=== PATIENT | female | born 1990 | race Caucasian/White ===

== ENCOUNTER 2017-09-02 14:45 | Observation (INO) | payer MEDICAID, OTHER ==
[~2017-09-02] VITALS: Ht 157.5 cm; Wt 107.5 kg
[2017-09-02 14:55] VITALS: BP 118/75
[2017-09-02] MEDS ORDERED: NS IV 500 ML 500 ML IV SCH (15:00)
[2017-09-02 15:13] LABS: BASOPHILS % (AUTO) 0 % (0-10); EOSINOPHILS # (AUTO) 0.1 10^3/uL (0.0-0.3); EOSINOPHILS % (AUTO) 1 % (0-10); HEMATOCRIT 31 % (35-52); HEMOGLOBIN 10.7 G/DL (11.5-16.0); LYMPHOCYTES # (AUTO) 1.7 X 10^3 (1.0-4.0); LYMPHOCYTES % (AUTO) 22 % (12-44); MEAN CORPUSCULAR HEMOGLOBIN 28 PG (25-34); MEAN CORPUSCULAR HGB CONC 35 G/DL (32-36); MEAN CORPUSCULAR VOLUME 81 FL (80-99); MEAN PLATELET VOLUME 10.4 FL (7.4-10.4); MONOCYTES # (AUTO) 0.6 X 10^3 (0.0-1.0); MONOCYTES % (AUTO) 8 % (0-12); NEUTROPHILS # (AUTO) 5.3 X 10^3 (1.8-7.8); NEUTROPHILS % (AUTO) 69 % (42-75); PLATELET COUNT 258 10^3/uL (130-400); RED BLOOD COUNT 3.84 10^6/uL (4.35-5.85); RED CELL DISTRIBUTION WIDTH 13.8 % (10.0-14.5); WHITE BLOOD COUNT 7.7 10^3/uL (4.3-11.0)
[2017-09-02 15:15] VITALS: BP 114/53
[2017-09-02] MEDS ORDERED: INFLUENZA TRIvalent 2017-2018 0.5 ML/45 MCG SYR IM ONE (15:30)
[2017-09-02] MEDS ORDERED: CATHETER FLUSH 10 ML SYR IV PRN (15:30)
[2017-09-02 15:34] LABS: ALANINE AMINOTRANSFERASE 8 U/L (0-55); ALBUMIN 2.9 GM/DL (3.2-4.5); ALKALINE PHOSPHATASE 105 U/L (40-136); BILIRUBIN,TOTAL 0.4 MG/DL (0.1-1.0); BUN/CREATININE RATIO 6; CALCIUM 8.4 MG/DL (8.5-10.1); CARBON DIOXIDE 20 MMOL/L (21-32); CHLORIDE 109 MMOL/L (98-107); CREATININE SERUM 0.54 MG/DL (0.60-1.30); GFR ESTIMATED > 60; GLUCOSE 68 MG/DL (70-105); POTASSIUM 3.1 MMOL/L (3.6-5.0); SODIUM 138 MMOL/L (135-145); TOTAL PROTEIN 6.2 GM/DL (6.4-8.2); URIC ACID 4.1 MG/DL (2.6-7.2)
[2017-09-02] MEDS: D5 LR IV SOLUTION 1,000 ML IV SCH (15:37)
[2017-09-02] MEDS ORDERED: morphine INJ 10 MG/ML 1ML (SYR OR VIAL) IJ ONE (20:45)
[2017-09-02 21:00] VITALS: BP 119/63
[2017-09-03] VITALS: BP 121/76
[2017-09-03] MEDS: D5 LR IV SOLUTION 1,000 ML IV SCH (01:58)
[2017-09-03 05:23] VITALS: BP 111/69
[2017-09-03 07:50] VITALS: BP 119/69
--- NOTE | 2017-09-03 11:30 | History & Physical-OB ---
OB - Chief Complaint & HPI Date/Time Date of Admission: Date of Admission: 09/02/2017 Time Seen by Provider: 08:00 Chief Complaint/History OB-Reason for Admission/Chief: Uterine contractions Hx : 3 Hx Para: 2 Expected Date of Delivery: Sep 26, 2017 Gestational Age in Weeks: 36 Gestational Age in Days: 4 Indication for : desires repeat Other reason for admission: Patient was admitted from clinic yesterday after reporting contractions q 4 min , and extreme pain Admission Nurse Assessment Rev: Yes History of Labs O neg Antibody neg RI RPR NR HBsAg NR Hep Ab NR GC neg GBS unknown Allergies and Home Medications Allergies Coded Allergies: No Known Drug Allergies (Unverified , 09/02/17) Home Medications No Active Prescriptions or Reported Meds Patient Home Medication List Home Medication List Reviewed: Yes OB - History Hx of Present Care: Yes Ultrasounds: Normal mid trimester US Obstetrical Complications: None (late transfer of care, took over from [place] at 30 weeks with [facility], then transfer to [place] at 35 weeks.) Medical Complications: None Obstetrical History Hx : 3 Hx Para: 2 Patient Past Medical History n/a Social History/Family History Recent Infectious Disease Expo: No OB - Admission Exam Physical Exam Vitals: Vital Signs 09/03/17 07:50 Temp 97.8 Pulse 87 Resp 20 B/P (MAP) 119/69 (86) O2 Delivery Room Air HEENT: NCAT Heart: Rhythm Normal Lungs: Clear Abdomen: Non tender (I am able to press very hard over previous incision and the patient makes no response to this, watching TV, and answer questions without acting in pain.) Extremities: Normal Reflexes: Normal Cervical Dilatation: None Effacement: 50% Station: -2 Membranes: Intact Heart Rate: 130's Accelerations: Accelerations Present Decelerations: No Decelerations Short Term Variability: Present Metal Punch Press Operator Variability: Average (6-25) Contractions on Admission: 6-10 Minutes Apart (some appear to have abrupt rise and fall as if made with abdominal muscle contraction by patient) Intensity: Mild Labs Laboratory Tests Test 09/02/17 14:52 09/02/17 15:45 Range/Units White Blood Count 7.7 4.3-11.0 10^3/uL Red Blood Count 3.84 L 4.35-5.85 10^6/uL Hemoglobin 10.7 L 11.5-16.0 G/DL Hematocrit 31 L 35-52 % Mean Corpuscular Volume 81 80-99 FL Mean Corpuscular Hemoglobin 28 25-34 PG Mean Corpuscular Hemoglobin Concent 35 32-36 G/DL Red Cell Distribution Width 13.8 10.0-14.5 % Platelet Count 258 130-400 10^3/uL Mean Platelet Volume 10.4 7.4-10.4 FL Neutrophils (%) (Auto) 69 42-75 % Lymphocytes (%) (Auto) 22 12-44 % Monocytes (%) (Auto) 8 0-12 % Eosinophils (%) (Auto) 1 0-10 % Basophils (%) (Auto) 0 0-10 % Neutrophils # (Auto) 5.3 1.8-7.8 X 10^3 Lymphocytes # (Auto) 1.7 1.0-4.0 X 10^3 Monocytes # (Auto) 0.6 0.0-1.0 X 10^3 Eosinophils # (Auto) 0.1 0.0-0.3 10^3/uL Basophils # (Auto) 0.0 0.0-0.1 10^3/uL Sodium Level 138 135-145 MMOL/L Potassium Level 3.1 L 3.6-5.0 MMOL/L Chloride Level 109 H 98-107 MMOL/L Carbon Dioxide Level 20 L 21-32 MMOL/L Anion Gap 9 5-14 MMOL/L Blood Urea Nitrogen 3 L 7-18 MG/DL Creatinine 0.54 L 0.60-1.30 MG/DL Estimat Glomerular Filtration Rate > 60 BUN/Creatinine Ratio 6 Glucose Level 68 L 70-105 MG/DL Uric Acid 4.1 2.6-7.2 MG/DL Calcium Level 8.4 L 8.5-10.1 MG/DL Total Bilirubin 0.4 0.1-1.0 MG/DL Aspartate Amino Transf (AST/SGOT) 11 5-34 U/L Alanine Aminotransferase (ALT/SGPT) 8 0-55 U/L Alkaline Phosphatase 105 40-136 U/L Total Protein 6.2 L 6.4-8.2 GM/DL Albumin 2.9 L 3.2-4.5 GM/DL Urine Protein 15 H 6-12 MG/DL Urine Creatinine 95 30-125 MG/DL Urine Protein/Creatinine Ratio 0.16 OB - Assessment/Plan/Diagnosis Assessment Admission Dx 36 week IUP Previous c/s x 2 uterine contractions Late transfer of care Admission Status: Observation Plan Other Plan IVF hydration given overnight, and monitoring without signs of any distress, and with RN noting the patient is able to sleep through a good portion of the night. Plan to dc today with PTL precautions plan for RLTCS at 39 weeks Discharge Diagnosis Diagnosis: 36 week IUP Previous c/s x 2 uterine contractions Late transfer of care TINY OJEDA DO Sep 03, 2017 11:30 am
== END 2017-09-03 10:30 | disposition home or self-care (01) ==
LOC: LDRP 14:45 → WSo 14:49 → LDRP 14:49 → WSo 09-03 11:40 → EDSTATUS 09-09 10:08
PROVIDERS: ADMIT Obstetrics & Gynecology; ATTEND Obstetrics & Gynecology
DX: O60.03 Preterm labor without delivery, third trimester (principal); O34.219 Maternal care for unspecified type scar from previous cesarean delivery; Z3A.36 36 weeks gestation of pregnancy
CPT/HCPCS: 36415; 80053; 82570; 84156; 84550; 85025; 96360; 96361; 96372; 99211; G0378

== ENCOUNTER 2017-09-04 05:39 | Outpatient (CLI) | payer SELFPAY ==
[~2017-09-04] VITALS: Ht 157.5 cm; Wt 107.5 kg
== END 2017-09-04 12:40 ==
LOC: PREOP 05:39
PROVIDERS: ATTEND Obstetrics & Gynecology
DX: Z01.818 Encounter for other preprocedural examination (principal); O34.211 Maternal care for low transverse scar from previous cesarean delivery

== ENCOUNTER 2017-09-11 07:30 | Inpatient (IN) | payer MEDICAID ==
[~2017-09-11] VITALS: Ht 157.5 cm; Wt 104.8 kg
[2017-09-19] MEDS ORDERED: LACTATED RINGERS 1,000 ML IV ONE (02:06)
[2017-09-19] MEDS: LACTATED RINGERS 1,000 ML IV PRN ×2 (07:41→09:55)
[2017-09-19 07:45] VITALS: BP 122/85
[2017-09-19 08:15] VITALS: BP 134/79
[2017-09-19] MEDS ORDERED: FAMOTIDINE 20MG/2ML IV (PEPCID) IV ONE (08:15)
[2017-09-19] MEDS ORDERED: METOCLOPRAMIDE INJ 10 MG/2 ML (REGLAN) IV ONE (08:15)
[2017-09-19] MEDS ORDERED: CATHETER FLUSH 10 ML SYR IV PRN (08:15)
[2017-09-19] MEDS ORDERED: CITRIC ACID/SOB CIT (BICITRA) 30 ML UDC PO ONE (08:15)
[2017-09-19] MEDS ORDERED: ceFAZolin 2 GM IV Premixed 50 ML IV ONE (08:15)
[2017-09-19 08:17] LABS: BASOPHILS % (AUTO) 0 % (0-10); EOSINOPHILS # (AUTO) 0.1 10^3/uL (0.0-0.3); EOSINOPHILS % (AUTO) 1 % (0-10); HEMATOCRIT 32 % (35-52); HEMOGLOBIN 10.7 G/DL (11.5-16.0); LYMPHOCYTES # (AUTO) 2.6 X 10^3 (1.0-4.0); LYMPHOCYTES % (AUTO) 25 % (12-44); MEAN CORPUSCULAR HEMOGLOBIN 26 PG (25-34); MEAN CORPUSCULAR HGB CONC 33 G/DL (32-36); MEAN CORPUSCULAR VOLUME 79 FL (80-99); MEAN PLATELET VOLUME 10.5 FL (7.4-10.4); MONOCYTES # (AUTO) 0.8 X 10^3 (0.0-1.0); MONOCYTES % (AUTO) 8 % (0-12); NEUTROPHILS # (AUTO) 6.9 X 10^3 (1.8-7.8); NEUTROPHILS % (AUTO) 67 % (42-75); PLATELET COUNT 334 10^3/uL (130-400); RED BLOOD COUNT 4.06 10^6/uL (4.35-5.85); RED CELL DISTRIBUTION WIDTH 14.1 % (10.0-14.5); WHITE BLOOD COUNT 10.3 10^3/uL (4.3-11.0)
[2017-09-19 08:37] LABS: BILIRUBIN,URINE NEGATIVE (NEGATIVE); CLARITY,URINE CLEAR; COLOR,URINE YELLOW; GLUCOSE, URINE (UA) NEGATIVE (NEGATIVE); KETONES,URINE 3+ (NEGATIVE); LEUKOCYTE ESTERASE ,URINE 1+ (NEGATIVE); NITRITE,URINE NEGATIVE (NEGATIVE); PH,URINE 7 (5-9); PROTEIN,URINE 2+ (NEGATIVE); UROBILINOGEN,URINE 4 MG/DL (NORMAL)
[2017-09-19] MEDS ORDERED: ceFAZolin 2 GM IV Premixed 50 ML IV NR (08:45)
--- NOTE | 2017-09-19 08:48 | Progress Note-Pre Operative ---
Pre-Operative Progress Note H&P Reviewed The H&P was reviewed, patient examined and no changes noted. Date Seen by Provider: Sep 19, 2017 Time Seen by Provider: 08:45 Date H&P Reviewed: Sep 19, 2017 Time H&P Reviewed: 08:45 Pre-Operative Diagnosis: Previous , 39 weeks RUSTYTINY Foster Sep 19, 2017 8:48 am
[2017-09-19] MEDS ORDERED: TETANUS,DIPTH,PERTUSS P/F (BOOSTRIX) 0.5 ML VIAL IM SCH (09:00)
[2017-09-19] MEDS ORDERED: MEASLES,MUMPS,RUBELLA 1 EA INJ SC SCH (09:00)
[2017-09-19] MEDS ORDERED: LACTATED RINGERS 1,000 ML IV PRN (09:10)
[2017-09-19] MEDS ORDERED: OXYTOCIN/NORMAL SALINE 1,000 ML IV ONE (09:11)
[2017-09-19] MEDS ORDERED: fentaNYL INJECTION 100 MCG/2 ML AMP ONE (09:11)
[2017-09-19 09:15] LABS: BACTERIA,URINE FEW /HPF
--- NOTE | 2017-09-19 09:18 | Discharge Inst-Women's Service ---
Discharge Inst-Women's Serv Depart Medication/Instructions New, Converted or Re-Newed RX: RX on Chart Consults/Follow Up Additional Follow Up: Yes Orders/Referrals Dr. Ochoa in 7-[address] Grove in 6 weeks Activity Activity: Activity as Tolerated Driving Instructions: No Driving for 1 Week NO SMOKING: NO SMOKING Nothing Inside Vagina: No Douching, No [place], No Tampons Diet Discharge Diet: No Restrictions Symptoms to Report to : Bleeding Excessive, Pain Increased, Fever Over 101 Degrees F, Vaginal Bleeding Increase, Questions/Concerns For Any Problems or Questions: Contact Your Physician Skin/Wound Care Infection Signs and Symptoms: Increased Redness, Foul Odor of Wound, Increased Drainage, Skin Itchy or Has a Rash, Increased Swelling, Temperature Above 101 F Operative Area Clean and Dry: Keep Incision Clean/Dry Stitches/[place]/Dermabond: Dermabond, Care of Stitches Bathing Instructions: TINY Hdez DO Sep 19, 2017 9:18 am
[2017-09-19] MEDS ORDERED: DOCU100C37 PO (09:19)
[2017-09-19] MEDS ORDERED: ACHD5005 PO (09:19)
[2017-09-19] MEDS ORDERED: IBUP-1773 PO (09:19)
[2017-09-19 09:30] VITALS: BP 123/76
[2017-09-19] MEDS ORDERED: INFLUENZA TRIvalent 2017-2018 0.5 ML/45 MCG SYR IM ONE (09:45)
[2017-09-19] MEDS ORDERED: PHENYLEPHRINE 100 MCG/ML 10 ML (ANESTHESIA) SYR ONE (10:17)
--- NOTE | 2017-09-19 10:37 | Progress Note-Post Operative ---
Post-Operative Progess Note Surgeon (s)/Acute Care Registered Nurse (s) Surgeon ANTIONE OCHOA DO Acute Care Registered Nurse: Nikky Farfan Pre-Operative Diagnosis Previous , 39 weeks Post-Operative Diagnosis same Procedure & Operative Findings Date of Procedure 09/19/17 Procedure Performed/Findings PROCEDURE: Repeat low transverse section with bilateral risk reducing salpingectomy. SURGEON: Antione Ochoa DO. MACHINE BRUSHER: JENNIFER Verdugo. ANESTHESIA: Spinal. ESTIMATED BLOOD LOSS: 600 mL. URINE OUTPUT: 50 mL clear at the end of the procedure. FLUIDS: 1800mL of lactated Ringer's solution. FINDINGS: Live female , weight 7lbs 2 oz, one minute 8/9 Grossly normal appearing uterus, bilateral fallopian tubes and ovaries. Dense scarring of the fascia to the rectus muscle, and vesicouterine peritoneum SPECIMEN SENT: fallopian tubes INDICATION FOR PROCEDURE: This 27-year-old female is a patient that was a late transfer from [place] for care through [facility]. Her has been uncomplicated otherwise, and was scheduled for 39 weeks once appropriate dating was received from [place]. Risks of the procedure were discussed with the patient in detail including risks of bleeding, infection, damaging surrounding structures including, but not limited to bowel, bladder, ureter, kidneys, risk to the infant and postoperative complications and need for reoperation were all discussed with the patient. We also reviewed risk reducing salpingectomy. After everything was discussed and all of her questions were answered, consent was obtained, the patient was taken to the operating room. OPERATIVE IN DETAIL: Once in the operating room, spinal anesthesia was found to be adequate, she was placed in supine position with a leftward tilt, prepped and draped in normal sterile fashion. Anesthesia was tested and timeout was performed. I then made a Pfannenstiel skin incision to the previously existing scar using a knife and carried down to the underlying fascia using Bovie cautery. The fascial incision extended laterally using Bovie cautery. The superior aspect of fascial incision was then grasped with Micha clamps, tented up and dissected off the underlying rectus muscles. The inferior aspect of the fascial incision was then grasped with Micha clamps, tented up and dissected off the rectus muscles. The rectus muscles were dissected down the midline using Meier scissors, which exposed the peritoneum, which I entered bluntly and extended using a blunt traction. An Castillo ring retractor was placed in the peritoneal incision, which offers excellent lateral sidewall retraction. I then made a low transverse incision into the vesicouterine peritoneum using the knife until membranes were visualized. I attempted to dissect the bladder off of the lower uterine segment; however, the lower uterine segment was extremely thin. I then proceeded with extending the uterine incision using bandage scissors laterally and superiorly. Amniotomy was performed using an Allis clamp and clear fluid was noted. The infant was found in the vertex presentation. With gentle fundal pressure, infant's head was delivered to the incision where a a nuchal cord was reduced, anterior and posterior shoulders were delivered. Infant was then brought to the operative field where the cord was doubly clamped and cut and handed off to nurses in attendance. Cord blood was collected for analysis. Three-vessel cord was intact. Placenta was delivered spontaneously thereafter. IV Pitocin is initiated to facilitate uterine contraction. Uterine fundus became firmer with bimanual massage. Uterus was then exteriorized and cleared of all endometrial clots and debris. I then closed the uterine incision using 0 Vicryl suture in a running locked fashion. Second layer of imbricating 0 Monocryl was placed. Excellent hemostasis noted after doing so. I then took my attention to the fallopian tubes where bilaterally I performed the following dissection. Using a LigaSure bipolar cautery and transection device, I started at the isthmic portion of the fallopian tube, cauterizing and transecting using LigaSure down the mesosalpinx to the distal ampullary site, at which point the fallopian tube was amputated and both were sent as a separate specimen, after which, there was no active bleeding noted from the fallopian tube dissection planes. The uterus was placed back within the pelvis and the uterine incision was inspected once more and found to be hemostatic. I copiously irrigated the pelvis using normal saline. There was no active bleeding noted from any pneumo dissection planes. I placed Interceed antiadhesive over my low transverse incision. The rectus muscle was reapproximated using 3-0 Vicryl suture in an interrupted fashion. The fascia was reapproximated using 0 Vicryl suture in running fashion. The subcutaneous tissue was reapproximated using 3-0 plain in an interrupted subcutaneous stitch and the skin reapproximated using 4-0 Monocryl in a running subcuticular. Dermabond was applied to the incision and sterile dressings with adhesive white tape. Two grams of Ancef was given preoperatively for infection prophylaxis. The patient tolerated the procedure and brought to the recovery area in stable condition. Lap and sponge count was correct after procedure was completed Anesthesia Type spinal Estimated Blood Loss Estimated blood loss (mL): 600 Specimens/Packing Specimens Removed tubes ANTIONE OCHOA DO Sep 19, 2017 10:37
[2017-09-19] MEDS ORDERED: ONDANSETRON 4 MG/2 ML (SDV) Z0FRAN IVP PRN (11:30)
[2017-09-19] MEDS: OXYTOCIN/NORMAL SALINE 500 ML IV SCH (11:59)
[2017-09-19] MEDS: KETOROLAC 30 MG/ML VIAL IVP SCH ×3 (11:59→23:58)
[2017-09-19 12:00] VITALS: BP 128/74
[2017-09-19] MEDS: DOCUSATE SODIUM 100 MG (COLACE) CAP PO SCH ×2 (12:00→20:39)
[2017-09-19] MEDS: HYDROcodone/APAP 5 MG/325 MG (LORTAB) TAB PO PRN ×2 (13:23→20:39)
[2017-09-19] MEDS ORDERED: CATHETER FLUSH 10 ML SYR IV SCH (14:00)
--- NOTE | 2017-09-19 14:16 | Anesthesia-General Post-Op ---
General Patient Condition Mental Status/LOC: Same as Preop Cardiovascular: Satisfactory Nausea/Vomiting: Absent Respiratory: Satisfactory Pain: Controlled Complications: Absent Post Op Complications Complications None Follow Up Care/Instructions Patient Instructions None needed. Anesthesia/Patient Condition Patient Condition Patient is doing well, no complaints, stable vital signs, no apparent adverse anesthesia problems. No complications reported per nursing. DEON ALVARADO CRNA Sep 19, 2017 14:16
[2017-09-19] MEDS: HYDROmorphone (DILAUDID) 2 MG/ML VIAL IVP PRN ×2 (16:03→23:59)
[2017-09-19 18:32] VITALS: BP 135/94
[2017-09-19 20:00] VITALS: BP 119/83
--- NOTE | 2017-09-19 20:24 | Anesthesia-Regional Post-Op ---
Regional Patient Condition Mental Status: Alert, Oriented x3 Circulation: Same as Pre-Op Headache: Absent Sensation: Full Recovery Motor Block: Absent Post Op Complications Complications None Follow Up Care/Instructions Patient Instructions None needed. Anesthesia/Patient Condition Patient is doing well, no complaints, stable vital signs, no apparent adverse anesthesia problems. No complications reported per nursing. TIFFANY PADILLA CRNA Sep 19, 2017 20:24
[2017-09-20] VITALS: BP 126/89
[2017-09-20] MEDS: HYDROcodone/APAP 5 MG/325 MG (LORTAB) TAB PO PRN ×2 (03:54→09:09)
[2017-09-20 04:03] VITALS: BP 124/90
[2017-09-20] MEDS: KETOROLAC 30 MG/ML VIAL IVP SCH (05:50)
[2017-09-20 07:03] LABS: BASOPHILS % (AUTO) 0 % (0-10); EOSINOPHILS # (AUTO) 0.2 10^3/uL (0.0-0.3); EOSINOPHILS % (AUTO) 2 % (0-10); HEMATOCRIT 31 % (35-52); HEMOGLOBIN 10.2 G/DL (11.5-16.0); LYMPHOCYTES # (AUTO) 1.9 X 10^3 (1.0-4.0); LYMPHOCYTES % (AUTO) 20 % (12-44); MEAN CORPUSCULAR HEMOGLOBIN 26 PG (25-34); MEAN CORPUSCULAR HGB CONC 33 G/DL (32-36); MEAN CORPUSCULAR VOLUME 79 FL (80-99); MEAN PLATELET VOLUME 10.2 FL (7.4-10.4); MONOCYTES # (AUTO) 0.7 X 10^3 (0.0-1.0); MONOCYTES % (AUTO) 7 % (0-12); NEUTROPHILS # (AUTO) 6.8 X 10^3 (1.8-7.8); NEUTROPHILS % (AUTO) 71 % (42-75); PLATELET COUNT 242 10^3/uL (130-400); RED BLOOD COUNT 3.87 10^6/uL (4.35-5.85); RED CELL DISTRIBUTION WIDTH 14.1 % (10.0-14.5); WHITE BLOOD COUNT 9.6 10^3/uL (4.3-11.0)
[2017-09-20] MEDS: OXYTOCIN/NORMAL SALINE 500 ML IV SCH (07:45)
[2017-09-20 09:05] VITALS: BP 132/85
[2017-09-20] MEDS: DOCUSATE SODIUM 100 MG (COLACE) CAP PO SCH ×2 (09:08→21:06)
[2017-09-20] MEDS ORDERED: OXYC-197 PO (09:27)
--- NOTE | 2017-09-20 09:28 | Postpartum Progress Note ---
Note Note Day # 1 Subjective: Patient is without complaints. Ambulating, voiding. Tolerating a regular diet without nausea or vomiting. Normal lochia. Pain is poorly controlled with oral pain medications, switching to percocet Objective: Vital Sign - Last 24 Hours 09/19/17 09/19/17 09/19/17 09/19/17 09:30 12:00 18:32 20:00 Temp 97.9 97.3 97.2 Pulse 86 100 69 72 Resp 18 B/P (MAP) 123/76 (92) 128/74 (92) 135/94 (108) 119/83 (95) Pulse Ox 98 98 99 O2 Delivery Room Air Room Air Room Air 09/20/17 09/20/17 00:00 04:03 Temp 97.0 97.0 Pulse 72 62 Resp 18 B/P (MAP) 126/89 (101) 124/90 (101) Pulse Ox 100 97 O2 Delivery Room Air Room Air Intake and Output 09/19/17 09/19/17 09/20/17 15:00 23:00 07:00 Intake Total 3550 ml 2240 ml 300 ml Output Total 50 ml 300 ml 1300 ml Balance 3500 ml 1940 ml -1000 ml Laboratory Tests Test 09/20/17 06:38 Range/Units White Blood Count 9.6 4.3-11.0 10^3/uL Red Blood Count 3.87 L 4.35-5.85 10^6/uL Hemoglobin 10.2 L 11.5-16.0 G/DL Hematocrit 31 L 35-52 % Mean Corpuscular Volume 79 L 80-99 FL Mean Corpuscular Hemoglobin 26 25-34 PG Mean Corpuscular Hemoglobin Concent 33 32-36 G/DL Red Cell Distribution Width 14.1 10.0-14.5 % Platelet Count 242 130-400 10^3/uL Mean Platelet Volume 10.2 7.4-10.4 FL Neutrophils (%) (Auto) 71 42-75 % Lymphocytes (%) (Auto) 20 12-44 % Monocytes (%) (Auto) 7 0-12 % Eosinophils (%) (Auto) 2 0-10 % Basophils (%) (Auto) 0 0-10 % Neutrophils # (Auto) 6.8 1.8-7.8 X 10^3 Lymphocytes # (Auto) 1.9 1.0-4.0 X 10^3 Monocytes # (Auto) 0.7 0.0-1.0 X 10^3 Eosinophils # (Auto) 0.2 0.0-0.3 10^3/uL Basophils # (Auto) 0.0 0.0-0.1 10^3/uL Physical Exam: General - Alert and oriented, no apparent distress Abdomen - Soft, appropriately tender to palpation, non-distended, fundus firm at umbilicus Extremities - no edema, negative Una's bilaterally Incision: c/d/i Assessment: POD 1 RLTCS w/ RRS Plan: Routine care, change to percocet oral narcotic Encourage breast feeding. Encourage ambulation. Ferrous sulfate supplementation. Plan for discharge tomorrow Vitals - Labs Vital Signs - I&O Vital Signs Date Time Temp Pulse Resp B/P (MAP) Pulse Ox O2 Delivery O2 Flow Rate FiO2 09/20/17 04:03 97.0 62 18 124/90 (101) 97 Room Air 09/20/17 00:00 97.0 72 18 126/89 (101) 100 Room Air 09/19/17 20:00 97.2 72 18 119/83 (95) 99 Room Air 09/19/17 18:32 97.3 69 18 135/94 (108) 98 Room Air 09/19/17 12:00 97.9 100 18 128/74 (92) 98 Room Air 09/19/17 09:30 86 18 123/76 (92) I & O 09/20/17 07:00 Intake Total 6090 ml Output Total 1650 ml Balance 4440 ml Labs Laboratory Tests 09/20/17 06:38: White Blood Count 9.6, Red Blood Count 3.87L, Hemoglobin 10.2L, Hematocrit 31L, Mean Corpuscular Volume 79L, Mean Corpuscular Hemoglobin 26, Mean Corpuscular Hemoglobin Concent 33, Red Cell Distribution Width 14.1, Platelet Count 242, Mean Platelet Volume 10.2, Neutrophils (%) (Auto) 71, Lymphocytes (%) (Auto) 20 , Monocytes (%) (Auto) 7, Eosinophils (%) (Auto) 2, Basophils (%) (Auto) 0, Neutrophils # (Auto) 6.8, Lymphocytes # (Auto) 1.9, Monocytes # (Auto) 0.7, Eosinophils # (Auto) 0.2, Basophils # (Auto) 0.0 TINY OJEDA DO Sep 20, 2017 09:28
[2017-09-20] MEDS: oxyCODONE/APAP 5/325MG (PERCOCET 5) TABLET PO PRN ×3 (10:24→21:06)
[2017-09-20] MEDS: IBUPROFEN 600 MG (MOTRIN) TAB PO SCH ×3 (12:04→23:37)
[2017-09-20 15:33] VITALS: BP 113/75
[2017-09-20 20:55] VITALS: BP 114/80
[2017-09-21 02:00] VITALS: BP 124/85
[2017-09-21] MEDS: oxyCODONE/APAP 5/325MG (PERCOCET 5) TABLET PO PRN ×3 (04:24→15:36)
[2017-09-21] MEDS: IBUPROFEN 600 MG (MOTRIN) TAB PO SCH ×2 (06:04→13:35)
--- NOTE | 2017-09-21 09:27 | Postpartum Progress Note ---
Note Note Day # 2 Subjective: Patient is without complaints. Ambulating, voiding. Tolerating a regular diet without nausea or vomiting. Normal lochia. Pain is well controlled with oral pain medications. Objective: Vital Sign - Last 24 Hours 09/20/17 09/20/17 09/21/17 15:33 20:55 02:00 Temp 97.4 97.8 97.3 Pulse 78 72 72 Resp 18 18 18 B/P (MAP) 113/75 (88) 114/80 (91) 124/85 (98) Pulse Ox 99 100 99 O2 Delivery Room Air Room Air Room Air Physical Exam: General - Alert and oriented, no apparent distress Abdomen - Soft, appropriately tender to palpation, non-distended, fundus firm at umbilicus Extremities - no edema, negative Una's bilaterally Incision - c/d/i Assessment: POD 2 RLTCS w RRS Plan: Routine care. Encourage breast feeding. Encourage ambulation. Ferrous sulfate supplementation. Plan for discharge today Vitals - Labs Vital Signs - I&O Vital Signs Date Time Temp Pulse Resp B/P (MAP) Pulse Ox O2 Delivery O2 Flow Rate FiO2 09/21/17 02:00 97.3 72 18 124/85 (98) 99 Room Air 09/20/17 20:55 97.8 72 18 114/80 (91) 100 Room Air 09/20/17 15:33 97.4 78 18 113/75 (88) 99 Room Air Labs Microbiology 09/19/17 MRSA Screen - Final, Complete MRSA not isolated TINY OJEDA DO Sep 21, 2017 9:27 am
[2017-09-21] MEDS: DOCUSATE SODIUM 100 MG (COLACE) CAP PO SCH (09:35)
[2017-09-21 09:38] VITALS: BP 136/81
[2017-09-21 15:38] VITALS: BP 130/84
== END 2017-09-21 17:55 | disposition home or self-care (01) | DRG 766 ==
LOC: LDRP 09-19 07:15
PROVIDERS: ADMIT Obstetrics & Gynecology; ATTEND Obstetrics & Gynecology
PROC: 0UT70ZZ Resection of Bilateral Fallopian Tubes, Open Approach (ICD-10-PCS; 2017-09-19)
PROC: 10D00Z1 Extraction of Products of Conception, Low, Open Approach (ICD-10-PCS; principal; 2017-09-19 09:29)
DX: O34.211 Maternal care for low transverse scar from previous cesarean delivery (principal); Z40.03 Encounter for prophylactic removal of fallopian tube(s); Z3A.39 39 weeks gestation of pregnancy; Z37.0 Single live birth
CPT/HCPCS: 36415; 81000; 85025; 86850; 86900; 86901; 87081; 90707; 90715; 94664